=== PATIENT | female | born 1980 | race African-American/Black ===

== ENCOUNTER 2017-12-14 18:00 | Emergency (ER) | payer MEDICARE, OTHER ==
[2017-12-14 19:00] LABS: URINE BLOOD (Dip) POC 1+ (NEGATIVE); URINE GLUCOSE (Dip) POC Negative (NEGATIVE); URINE KETONES (Dip) POC Negative (NEGATIVE); URINE LEUKOCYTE EST (Dip) POC Trace (NEGATIVE); URINE NITRITE (Dip) POC Negative (NEGATIVE); URINE TOTAL PROTEIN POC 2+ (NEGATIVE)
[2017-12-14 19:01] LABS: ADD MAN DIFF? NO
[2017-12-14 19:02] LABS: WHITE BLOOD COUNT 5.6 10^3/ul (4.8-10.8)
[2017-12-14 19:02] LABS: BASOPHILS % 0.4 % (0.0-2.0); EOSINOPHILS # 0.1 10^3/ul (0.0-0.5); EOSINOPHILS % 1.1 % (0.0-7.0); HEMATOCRIT 38.1 % (37.0-47.0); HEMOGLOBIN 12.7 g/dl (12.0-16.0); LYMPHOCYTES # 1.4 10^3/ul (0.8-2.9); LYMPHOCYTES % 25.8 % (15.0-51.0); MEAN CORPUSCULAR HEMOGLOBIN 27.9 pg (29.0-33.0); MEAN CORPUSCULAR HGB CONC 33.3 g/dl (32.0-37.0); MEAN CORPUSCULAR VOLUME 83.6 fl (82.0-101.0); MEAN PLATELET VOLUME 8.5 fl (7.4-10.4); MONOCYTE # 0.6 10^3/ul (0.3-0.9); MONOCYTES % 10.4 % (0.0-11.0); NEUTROPHIL # 3.5 10^3/ul (1.6-7.5); NEUTROPHILS % 61.9 % (39.0-77.0); PLATELET COUNT 314 10^3/UL (140-415); RED BLOOD COUNT 4.56 10^6/ul (4.20-5.40); RED CELL DISTRIBUTION WIDTH 13.8 % (11.5-14.5)
[2017-12-14] MEDS: SOD CHLORIDE 0.9% 500 ML IV (19:03)
[2017-12-14 19:24] LABS: ALANINE AMINOTRANSFERASE 19 IU/L (13-69); ALBUMIN 4.6 g/dl (3.3-4.9); ALBUMIN/GLOBULIN RATIO 1.24; ALKALINE PHOSPHATASE 71 IU/L (42-121); ANION GAP 16 (8-16); ASPARTATE AMINO TRANSFERASE 21 IU/L (15-46); BILIRUBIN,INDIRECT 0.2 mg/dl (0-1.1); BILIRUBIN,TOTAL 0.2 mg/dl (0.2-1.3); BLOOD UREA NITROGEN 8 mg/dl (7-20); CALCIUM 9.8 mg/dl (8.4-10.2); CARBON DIOXIDE 25 mmol/L (21-31); CHLORIDE 105 mmol/L (97-110); CREATININE 0.73 mg/dl (0.44-1.00); GLUCOSE 90 mg/dl (70-220); LIPASE 134 U/L (23-300); POTASSIUM 3.9 mmol/L (3.5-5.1); SODIUM 142 mmol/L (135-144); TOTAL PROTEIN 8.3 g/dl (6.1-8.1)
[2017-12-14] MEDS: IOHEXOL 300MG/ML 150 ML BTL (20:25)
[2017-12-14] MEDS: SOD CHLORIDE 0.9% 100 ML (20:25)
== END 2017-12-14 23:04 | disposition home or self-care (01) ==
LOC: FTE 18:00
DX: M54.9 Dorsalgia, unspecified (principal); R14.0 Abdominal distension (gaseous)
CPT/HCPCS: 74177; 80053; 81003; 81025; 83690; 85025; 99285-25

== ENCOUNTER 2018-12-10 10:52 | Emergency (ER) | payer MEDICARE, OTHER ==
[2018-12-10] MEDS: LORAZEPAM 0.5 MG TAB PO (11:59)
== END 2018-12-10 12:25 | disposition home or self-care (01) ==
LOC: FTE 10:52
DX: F41.9 Anxiety disorder, unspecified (principal)
CPT/HCPCS: 93005; 99283